=== PATIENT | female | born 1980 | race Caucasian/White ===

== ENCOUNTER 2018-01-04 16:41 | Emergency (ER) | payer OTHER ==
[~2018-01-04] VITALS: Ht 170.2 cm; Wt 88.9 kg
[2018-01-04 16:54] VITALS: Ht 170.2 cm; Wt 88.9 kg
[2018-01-04 18:31] VITALS: BP 135/61
== END 2018-01-04 18:31 | disposition home or self-care (01) ==
LOC: ED 16:41
DX: K02.9 Dental caries, unspecified (principal); R03.0 Elevated blood-pressure reading, without diagnosis of hypertension; J45.909 Unspecified asthma, uncomplicated
CPT/HCPCS: J1885

== ENCOUNTER 2018-01-05 07:51 | Emergency (ER) | payer OTHER ==
[~2018-01-05] VITALS: Ht 170.2 cm; Wt 87.5 kg
[2018-01-05 07:53] VITALS: BP 111/57; Ht 170.2 cm; Wt 87.5 kg
== END 2018-01-05 09:42 | disposition home or self-care (01) ==
LOC: ED 07:51
DX: R68.84 Jaw pain (principal); J45.909 Unspecified asthma, uncomplicated
CPT/HCPCS: J1885

== ENCOUNTER 2019-02-08 17:33 | Emergency (ER) | payer OTHER ==
[~2019-02-08] VITALS: Ht 167.6 cm; Wt 92.5 kg
[2019-02-08 17:56] VITALS: Ht 167.6 cm; Wt 92.5 kg
[2019-02-08 19:23] VITALS: BP 116/58
== END 2019-02-08 19:23 | disposition home or self-care (01) ==
LOC: ED 17:33
DX: M25.561 Pain in right knee (principal); J45.909 Unspecified asthma, uncomplicated; X58.XXXA Exposure to other specified factors, initial encounter; Y93.89 Activity, other specified; Y92.89 Other specified places as the place of occurrence of the external cause; Y99.8 Other external cause status
CPT/HCPCS: J1885

== ENCOUNTER 2020-09-07 06:44 | Emergency (ER) | payer OTHER, SELFPAY ==
[~2020-09-07] VITALS: Ht 167.6 cm; Wt 94.5 kg
[2020-09-07 06:47] VITALS: Ht 167.6 cm; Wt 94.5 kg
[2020-09-07 08:12] LABS: BASOPHIL % 0.7 % (0.2-1.3); PLATELET COUNT 222 x10^3mcL (179-408); RED CELL DISTRIBUTION WIDTH 13.3 % (12.3-17.7)
[2020-09-07 08:20] LABS: CALCIUM 8.2 mg/dL (8.5-10.1); CARBON DIOXIDE 27.6 mmol/L (21-32); CHLORIDE SERUM 104 mmol/L (98-107); CREATININE SERUM 1.1 mg/dL (0.6-1.0); GFR1 59 mL/min; GLUCOSE SERUM 97 mg/dL (74-106); POTASSIUM SERUM 3.9 mmol/L (3.5-5.1); SODIUM SERUM 139 mmol/L (136-145)
[2020-09-07 08:27] LABS: ALBUMIN 3.6 g/dL (3.4-5.0); ALKALINE PHOSPHATASE 83 U/L (46-116); ALT/SGPT 35 U/L (14-59); AST/SGOT 30 U/L (15-37); BILIRUBIN TOTAL 0.65 mg/dL (0.20-1.00); TOTAL PROTEIN, SERUM 6.8 g/dL (6.4-8.2)
[2020-09-07 09:01] LABS: AMPHETAMINE QUAL UR NONE DETECTED (See below)
[2020-09-07 16:23] VITALS: BP 114/52
== END 2020-09-07 16:00 | disposition short-term general hospital (02) ==
LOC: ED 06:44
PROVIDERS: Emergency Medicine
DX: R07.89 Other chest pain (principal); R45.851 Suicidal ideations; R06.02 Shortness of breath; J45.909 Unspecified asthma, uncomplicated; Z20.822 Contact with and (suspected) exposure to COVID-19
CPT/HCPCS: G0480; U0003